=== PATIENT | female | born 1965 | race Caucasian/White ===

== ENCOUNTER 2022-11-12 09:56 | Emergency (ER) | payer MEDICAID ==
[~2022-11-12] VITALS: Ht 147.3 cm; Wt 83.5 kg
[~2022-11-12 09:56] MED LIST: ACET-1195 PO; ATEN25TA7 PO; HYDR-4004 PO; MUPI2CRE22 TP
[2022-11-12 10:08] VITALS: BP 168/98; PULSE 61; RESP 18; TEMP 97.1; O2SAT 97
[2022-11-12 10:35] VITALS: BP 148/88; PULSE 61; RESP 18; TEMP 98; O2SAT 98
== END 2022-11-12 10:35 | disposition home or self-care (01) ==
LOC: MED 09:56
DX: S01.81XD Laceration without foreign body of other part of head, subsequent encounter (principal); I10 Essential (primary) hypertension; Z79.899 Other long term (current) drug therapy; X58.XXXD Exposure to other specified factors, subsequent encounter
CPT/HCPCS: 99281

== ENCOUNTER 2022-11-22 08:58 | Emergency (ER) | payer MEDICAID ==
[~2022-11-22] VITALS: Ht 73.7 cm; Wt 87.5 kg
[2022-11-22 09:34] VITALS: BP 191/101; PULSE 76; RESP 18; TEMP 97.9; O2SAT 97
[2022-11-22] MEDS ORDERED: ACETAMINOPHEN EXTRA STRENGTH 500 MG TAB PO ONE (11:00)
[2022-11-22] MEDS ORDERED: KETOROLAC 15 MG/ML VIAL IVP ONE (11:00)
[2022-11-22 11:28] LABS: APPEARANCE,URINE CLEAR (CLEAR); BILIRUBIN,URINE NEGATIVE (NEGATIVE); BLOOD, URINE NEGATIVE (NEGATIVE); COLOR,URINE YELLOW (YELLOW); LEUKOCYTE ESTERASE ,URINE NEGATIVE (NEGATIVE); NITRITE, URINE NEGATIVE (NEGATIVE); PROTEIN,URINE NEGATIVE (NEGATIVE); UGLUCOSE NEGATIVE (NEGATIVE); UROBILINOGEN,URINE 0.2 EU/dL (0.2 - 1)
[2022-11-22 11:29] LABS: BASOPHILS # (AUTO) 0.1 K/uL (0.00-0.22); BASOPHILS % (AUTO) 0.7 % (0.0-2.0); EOSINOPHILS % (AUTO) 0.6 % (0.0-4.0); HEMATOCRIT 40.4 % (36-48); HEMOGLOBIN 13.6 g/dL (12.0-16.0); LYMPHOCYTES # (AUTO) 2.2 K/uL (2.5-16.5); LYMPHOCYTES % (AUTO) 28.5 % (20.5-51.1); MEAN CORPUSCULAR HEMOGLOBIN 30 pg (27-31); MEAN CORPUSCULAR HGB CONC 34 g/dL (33-37); MEAN CORPUSCULAR VOLUME 90.3 fL (80-94); MONOCYTES # (AUTO) 0.3 K/uL (0.8-1.0); MONOCYTES % (AUTO) 4.1 % (1.7-9.3); NEUTROPHILS % (AUTO) 66.1 % (42.2-75.2); PLATELET COUNT (AUTO) 279 K/uL (140-450); RED BLOOD CELL COUNT(AUTO) 4.47 MIL/uL (4.20-5.40); RED CELL DISTRIBUTION WIDTH 13.3 % (11.6-13.7); WHITE BLOOD COUNT (AUTO) 7.6 K/uL (4.8-10.8)
[2022-11-22 11:45] LABS: ANION GAP 11.8 (8-16); CALCIUM 9.3 mg/dL (8.5-10.1); CARBON DIOXIDE 29.1 mmol/L (21-32); CREATININE 0.8 mg/dL (0.6-1.3); POTASSIUM 3.9 mmol/L (3.5-5.1); TOTAL BILIRUBIN 0.6 mg/dL (0.0-1.0)
[2022-11-22] MEDS ORDERED: KETOROLAC 15 MG/ML VIAL IM ONE (11:45)
[2022-11-22 11:56] VITALS: BP 191/101; PULSE 76; RESP 18; TEMP 97.9; O2SAT 97
== END 2022-11-22 13:29 | disposition home or self-care (01) ==
LOC: MED 08:58
DX: S39.012A Strain of muscle, fascia and tendon of lower back, initial encounter (principal); I10 Essential (primary) hypertension; Z79.899 Other long term (current) drug therapy; X58.XXXA Exposure to other specified factors, initial encounter; Y93.89 Activity, other specified; Y92.89 Other specified places as the place of occurrence of the external cause; Y99.8 Other external cause status
CPT/HCPCS: 36415; 74176; 80053; 81003; 83690; 85025; 96372; 99285; J1885